=== PATIENT | female | born 1970 | race Hispanic/Latino ===

== ENCOUNTER → 2024-12-23 11:27 | Outpatient (CLI) | payer BC, SELFPAY ==
--- NOTE | 2024-12-23 11:36 | DI.RAD.S_ITS ---
PROCEDURE: XR HAND RT 2V INDICATIONS: MONONEUROPATHY TECHNIQUE: Two views of the right hand were acquired. COMPARISON: None. FINDINGS: Bones: There are no osseous abnormalities Joints: The joint spaces are normal in width and alignment without arthritic change. Soft tissues: No soft tissue abnormality. IMPRESSION: Normal. Dictated by: Lavon Lira M.D. on 12/24/2024 at 7:04 Approved by: Lavon Lira M.D. on 12/24/2024 at 7:04
== END ==
PROVIDERS: Referring Provider Registered Nurse; Visit Provider Registered Nurse
DX: G58.9 Mononeuropathy, unspecified (principal)
CPT/HCPCS: 73120

== ENCOUNTER → 2025-01-03 10:02 | Outpatient (CLI) | payer BC, SELFPAY ==
--- NOTE | 2025-01-03 10:03 | DI.US.S_ITS ---
PROCEDURE: US ABDOMEN LIMITED INDICATIONS: LUQ ABD PAIN TECHNIQUE: Real-time focused scanning was performed of the abdomen, with image documentation. COMPARISON: None. FINDINGS: The spleen demonstrates normal sonographic appearance and size. The left kidney demonstrates normal size measuring 10.0 cm. No hydronephrosis or renal stones visualized. An area of the left upper quadrant pointed out by the patient, no sonographic abnormality is seen. IMPRESSION: No sonographic abnormality on limited evaluation of the left upper quadrant. The spleen and left kidney demonstrate normal sonographic appearance. Dictated by: Damian Ponce M.D. on 01/04/2025 at 23:09 Approved by: Damian Ponce M.D. on 01/04/2025 at 23:11
== END ==
PROVIDERS: PCP Registered Nurse; Referring Provider Registered Nurse; Visit Provider Registered Nurse
DX: R10.12 Left upper quadrant pain (principal)
CPT/HCPCS: 76705

== ENCOUNTER → 2025-01-05 10:50 | Outpatient (CLI) | payer BC, SELFPAY ==
--- NOTE | 2025-01-05 10:51 | DI.MRI.S_ITS ---
PROCEDURE: MR HAND RT WO/W CON INDICATIONS: rule out alicia cysts TECHNIQUE: Coronal and axial T1 spin echo and T2 fast spin echo with fat saturation. Post- contrast coronal and axial T1 spin echo with fat saturation images through the right hand and wrist. COMPARISON: [facility], CR, XR HAND RT 2V, 12/23/2024, 11:32. FINDINGS: Trace tendon sheath fluid and mild synovial enhancement at the 2nd and 3rd extensor compartments at the intersection. No joint effusion. No bone marrow edema. No ganglion. No fracture. No marrow replacing osseous lesion. Degenerative subcortical cyst or vascular remnant in the capitate approximately 2 millimeters, incidental. No tendon tear. No ligament tear. No osteonecrosis. No soft tissue mass. IMPRESSION: Distal intersection syndrome. Dictated by: Rohan Hernandez M.D. on 01/06/2025 at 16:42 Approved by: Rohan Hernandez M.D. on 01/06/2025 at 16:48
== END ==
LOC: MRI 10:51
PROVIDERS: PCP Registered Nurse; Referring Provider Physician Assistant Surgical; Visit Provider Physician Assistant Surgical
DX: M85.60 Other cyst of bone, unspecified site (principal); M65.841 Other synovitis and tenosynovitis, right hand
CPT/HCPCS: 73220; A9579